=== PATIENT | male | born 1970 | race Two or more races ===

== ENCOUNTER 2023-01-09 05:23 | Day surgery (SDC) | payer OTHER ==
[~2023-01-09] VITALS: Ht 160 cm; Wt 91.2 kg
[~2023-01-09 05:23] MED LIST: GRALISE600 MG PO; HYDROCHLOROTHIA25 MG PO; METFORMIN HCL500 M3 PO; NORVASC2.5 MG PO
[2023-01-09] MEDS ORDERED: CILOXAN5 ML OTIC (10:38)
[2023-01-09] MEDS ORDERED: CEPHALEXIN500 M1 PO (10:41)
== END 2023-01-09 12:30 | disposition home or self-care (01) ==
LOC: CIR.AMB 05:23
PROVIDERS: ATTEND Otolaryngology Otology & Neurotology
DX: H70.11 Chronic mastoiditis, right ear (principal); H95.11 Chronic inflammation of postmastoidectomy cavity; H72.821 Total perforations of tympanic membrane, right ear; Z20.822 Contact with and (suspected) exposure to COVID-19; I10 Essential (primary) hypertension; E11.9 Type 2 diabetes mellitus without complications; Z79.84 Long term (current) use of oral hypoglycemic drugs